=== PATIENT | female | born 2000 | race Caucasian/White ===

== ENCOUNTER 2020-01-20 22:53 | Emergency (ER) | payer OTHER ==
[~2020-01-20] VITALS: Ht 162.6 cm; Wt 97.5 kg
[2020-01-21 01:27] LABS: BASOPHIL % 1.7 % (0-2); PLATELET COUNT 326 x10^3mcL (130-400); RED CELL DISTRIBUTION WIDTH 13.5 % (11.5-14.5)
[2020-01-21 02:01] VITALS: BP 102/40
== END 2020-01-21 02:01 | disposition home or self-care (01) ==
LOC: ED 22:53
PROVIDERS: Emergency Medicine
DX: Z48.01 Encounter for change or removal of surgical wound dressing (principal)
CPT/HCPCS: 36415

== ENCOUNTER 2020-05-31 11:24 | Emergency (ER) | payer OTHER ==
[~2020-05-31] VITALS: Ht 162.6 cm; Wt 93.4 kg
[2020-05-31 11:51] VITALS: Ht 162.6 cm; Wt 93.4 kg
[2020-05-31 15:04] VITALS: BP 124/63
== END 2020-05-31 15:04 | disposition home or self-care (01) ==
LOC: ED 11:24
DX: R07.89 Other chest pain (principal); R51 Headache; M25.512 Pain in left shoulder; E66.9 Obesity, unspecified